=== PATIENT | male | born 1970 | race Caucasian/White ===

== ENCOUNTER 2017-07-16 17:09 | Emergency (ER) | payer BC ==
[~2017-07-16] VITALS: Ht 190.5 cm; Wt 98.4 kg
[2017-07-16 17:46] LABS: HEMATOCRIT 42.9 % (38.0-50.0); HEMOGLOBIN 14.8 G/DL (12.5-16.6); MCH 30.3 PG (29.0-34.0); MCHC 34.5 G/DL (30.0-36.0); MCV 87.7 FL (86-99); PLATELET COUNT 205 K/uL (156-360); RBC DIS.WIDTH-CV 11.9 % (11.8-14.6); RBC DIS.WIDTH-SD 38.2 % (39-53); RED BLOOD COUNT 4.89 M/uL (4.00-5.50); WHITE BLOOD COUNT 10.3 K/uL (4.1-10.2)
[2017-07-16 18:01] LABS: CHLORIDE 103 mEq/L (99-109); SODIUM 136 mEq/L (136-147)
[2017-07-16 18:03] LABS: GLUCOSE 90 mg/dL (70-99)
[2017-07-16 18:07] LABS: CREATININE 0.9 mg/dL (0.6-1.3); GFR ESTIMATE (CALCULATED) > 59 mL/min/ (58.99-99999)
[2017-07-16 18:08] LABS: UREA NITROGEN (BUN) 19 mg/dL (9-23)
[2017-07-16] MEDS ORDERED: CLEOCIN300 MG PO (19:04)
[2017-07-16] MEDS ORDERED: CIPRO500 MG PO (19:04)
[2017-07-16] MEDS ORDERED: PERCOCET 5/31 TABLET PO (19:11)
[2017-07-16 19:27] VITALS: BP 129/76
== END 2017-07-16 19:42 | disposition home or self-care (01) ==
LOC: EME 17:09
PROVIDERS: Physician Assistant
DX: L02.612 Cutaneous abscess of left foot (principal); L03.116 Cellulitis of left lower limb; Z87.891 Personal history of nicotine dependence
CPT/HCPCS: 73630; 80048; 83605; 85027; 87040; 87070; 87075; 87077; 87147; 87186; 87205; 99281; 99285; J1885; J1956